=== PATIENT | female | born 1950 | race Caucasian/White ===

== ENCOUNTER → 2019-09-14 11:55 | Outpatient (BNVA) | payer BC, OTHER, MEDICARE, SELFPAY | PROVIDERS: Family Provider Registered Nurse; PCP Registered Nurse; Visit Provider Nurse Practitioner Family | DX: I10 Essential (primary) hypertension (principal); E78.2 Mixed hyperlipidemia | CPT/HCPCS: 80053; 80061 ==

== ENCOUNTER 2019-09-18 11:55 | Emergency (ER) | payer BC, OTHER, MEDICARE, SELFPAY ==
[2019-09-18 12:03] VITALS: BP 158/119; PULSE 62; RESP 16; TEMP 37.1; O2SAT 97; BMI 38.2
[2019-09-18 12:17] VITALS: BP 135/67; PULSE 60; RESP 18; O2SAT 97
--- NOTE | 2019-09-18 12:17 | ECG_ITS ---
Measurements Intervals [place] Rate: 60 P: 45 SD: 159 QRS: 51 QRSD: 74 T: 35 QT: 407 QTc: 410 SINUS RHYTHM WITH OCCASIONAL SUPRAVENTRICULAR PREMATURE COMPLEXES No previous ECG available for comparison Electronically Signed On 09-18-2019 19:37:59 CDT by Yaneth John M.D. [id number]
--- NOTE | 2019-09-18 12:17 | XR_ITS ---
WS: [id number] XR chest 1V portable [id number] REASON FOR EXAM: cp FINDINGS: Arteriosclerotic changes in the arch of the aorta is seen. Irregularity along the right sup erior mediastinal interface with the heart is noted. This is probably the azygos lobe. Arteriosclerotic changes but no enlargement of the heart. The peripheral lungs are otherwise clear no pneumonia, pleural effusion, or mass effect. XR/XR chest 1V portable [id number] IMPRESSION: Along the upper one third of the heart border mediastinum there is an irregular nodular density follow-up evaluation with repeat chest in 6 weeks recommended Arteriosclerotic changes.
--- NOTE | 2019-09-18 12:18 | ED_ITS ---
HPI - Chest Pain General: Chief Complaint: Chest Pain Stated Complaint: chest tightness Time Seen by Provider: 09/18/19 12:04 History of Present Illness: HPI narrative: Patient had an episode of substernal chest pain and pressure that started approximately 45 minutes ago and has since resolved. Patient has been seen by her PCP and also by another ER over the past few days. She is very concerned about her elevated blood pressure. She reports she's been taking her blood pressure hourly. MD complaint: chest heaviness Pertinent past history: coronary artery disease Onset (ago): minute(s) Timing of current episode: constant and now resolved Prior episodes: No Onset: during rest Pain location: substernal Pain radiation: neck Severity: moderate Quality: tightness and heaviness Relieving factors: nothing Exacerbating factors: stress Context: new medications Associated symptoms: Reports dyspnea and nausea Treatment prior to arrival: none Review of Systems General: Reports: 10 or more systems reviewed and unremarkable except in HPI and below Resp: Reports: dyspnea GI: Reports: nausea PFSH ED PFSH: Medical History Hyperlipemia Hypertension Family History Other Cancer Heart problem Social History Smoking and tobacco status: never smoked Physical Exam Const: COMMON NORMALS: patient oriented x3 HENMT: COMMON NORMALS: normocephalic and atraumatic HEAD & SCALP: normocephalic and atraumatic Neck/C-Spine: COMMON NORMALS: full ROM, no meningeal signs and no JVD Resp: COMMON NORMALS: normal respiratory effort, No retractions, No use of accessory muscles, clear to auscultation bilaterally and percussion normal AUSCULTATION: clear to auscultation bilaterally PERCUSSION: percussion normal Cardio: COMMON NORMALS: no JVD, regular rate and regular rhythm RATE: regular rate RHYTHM: regular rhythm GI: COMMON NORMALS: Normal to inspection, nondistended, normoactive bowel sounds present, Soft to palpation, non-tender and no masses PALPATION: Yes Soft to palpation Extremity: COMMON NORMALS: normal to inspection, full ROM, no joint enlargement, no clubbing, cyanosis or edema and no calf tenderness Neuro: COMMON NORMALS: patient oriented x3, CN's II-XII intact bilaterally, moves all extremities and no focal motor deficits MENINGEAL SIGNS: Yes no meningeal signs Skin: COMMON NORMALS: no rashes or lesions noted, turgor normal, no jaundice, no petechiae and no mottling GENERAL SKIN EXAM: no rashes or lesions noted and turgor normal Course Vital Signs: Vital signs: Vital Signs Temperature 98.7 F 09/18/19 12:03 Pulse Rate 60 09/18/19 12:17 Respiratory Rate 18 09/18/19 12:17 Blood Pressure 135/67 09/18/19 12:17 Pulse Oximetry 97 09/18/19 12:17 MDM - Chest Pain Lab Data: Labs: Lab Results 09/18/19 09/18/19 09/18/19 Range/Units 12:40 12:40 12:40 WBC 7.7 (4.0-10.0) 10^3/ uL RBC 4.51 (4.1-5.3) 10^6/u L Hgb 13.7 (11.5-15.3) g/dL Hct 43.8 (37.0-47.0) % MCV 97.1 (81-99) fL MCH 30.4 (28.0-34.0) pg MCHC 31.3 (30.0-36.0) g/dL RDW 12.8 (12.1-15.1) % Plt Count 291 (130-400) 10^3/c mm MPV 11.7 H (7.4-10.4) fL Neut % (Auto) 69.7 % Lymph % (Auto) 21.8 % [place] % (Auto) 6.5 % Eos % (Auto) 1.2 % Baso % (Auto) 0.5 % Neut # (Auto) 5.4 (1.8-7.7) 10^3/u L Lymph # (Auto) 1.7 (0.8-4.8) 10^3/u L [place] # (Auto) 0.5 (0.2-0.9) 10^3/u L Eos # (Auto) 0.1 (0.0-0.8) 10^3/u L Baso # (Auto) 0.0 (0.0-0.1) 10^3/u L Nucleated RBC % (a uto) 0 % Nucleated RBCs # 0.0 /100WBC Sodium 139 (136-145) mmol/L Potassium 4.4 (3.5-5.1) mmol/L Chloride 103 (98-107) mmol/L Carbon Dioxide 22 (22-29) mmol/L Anion Gap 18.4 (5-19) BUN 21 (8-23) mg/dL Creatinine 1.0 H (0.5-0.9) mg/dL GFR Calculation 55.1 L (90-130) mL/min Glucose 136 H (65-115) mg/dL Calculated Osmolal ity 287 (285-295) mOsm/k g Calcium 10.2 (8.5-10.5) mg/dL Total Bilirubin 0.3 (0.15-1.2) mg/dL AST 37 H (0-32) U/L ALT 56 H (0-33) U/L Alkaline Phosphata se 107 H (35-105) IU/L Troponin T Baselin e 9 (0-10) ng/mL Troponin T 120 Min jcarlos (0-10) ng/mL Delta Troponin T (0-10) ABS# NT-Pro-B Natriuret Pep 240 H (0-125) pg/mL Total Protein 7.6 (6.6-8.7) g/dL Albumin 4.4 (3.5-5.2) g/dL Globulin 3.2 (1.3-4.6) g/dL 09/18/19 Range/Units 14:40 WBC (4.0-10.0) 10^3/ uL RBC (4.1-5.3) 10^6/u L Hgb (11.5-15.3) g/dL Hct (37.0-47.0) % MCV (81-99) fL MCH (28.0-34.0) pg MCHC (30.0-36.0) g/dL RDW (12.1-15.1) % Plt Count (130-400) 10^3/c mm MPV (7.4-10.4) fL Neut % (Auto) % Lymph % (Auto) % [place] % (Auto) % Eos % (Auto) % Baso % (Auto) % Neut # (Auto) (1.8-7.7) 10^3/u L Lymph # (Auto) (0.8-4.8) 10^3/u L [place] # (Auto) (0.2-0.9) 10^3/u L Eos # (Auto) (0.0-0.8) 10^3/u L Baso # (Auto) (0.0-0.1) 10^3/u L Nucleated RBC % (a uto) % Nucleated RBCs # /100WBC Sodium (136-145) mmol/L Potassium (3.5-5.1) mmol/L Chloride (98-107) mmol/L Carbon Dioxide (22-29) mmol/L Anion Gap (5-19) BUN (8-23) mg/dL Creatinine (0.5-0.9) mg/dL GFR Calculation (90-130) mL/min Glucose (65-115) mg/dL Calculated Osmolal ity (285-295) mOsm/k g Calcium (8.5-10.5) mg/dL Total Bilirubin (0.15-1.2) mg/dL AST (0-32) U/L ALT (0-33) U/L Alkaline Phosphata se (35-105) IU/L Troponin T Baselin e (0-10) ng/mL Troponin T 120 Min jcarlos 8.70 (0-10) ng/mL Delta Troponin T -0.30 L (0-10) ABS# NT-Pro-B Natriuret Pep (0-125) pg/mL Total Protein (6.6-8.7) g/dL Albumin (3.5-5.2) g/dL Globulin (1.3-4.6) g/dL Discharge Plan Discharge Patient Disposition: Home, Self-Care Clinical Impression: Chest pain Qualifiers: Chest pain type: unspecified Qualified Code(s): R07.9 - Chest pain, unspecified Condition: Stable Prescriptions: No Action lovastatin 40 mg tablet 40 mg PO QDAY Qty: 90 RF: 0 losartan 100 mg tablet 100 mg PO DAILY RF: 0 lisinopril 20 mg tablet 20 mg PO DAILY Qty: 30 RF: 0 Discharge Orders: Discharge Order (Routine); Ordered 09/18/19 Ordered By: Renny Anglin Referrals: Toan,Laurica, [employer] [Primary Care Provider] - Coding Level of Care Code ED Production Line for Chg Fwd Exam Comprehensive
[2019-09-18 12:49] LABS: Basophils % 0.5 %; Eosinophils # 0.1 10^3/uL (0.0-0.8); Eosinophils % 1.2 %; Hematocrit 43.8 % (37.0-47.0); Hemoglobin 13.7 g/dL (11.5-15.3); Lymphocytes # 1.7 10^3/uL (0.8-4.8); Lymphocytes % 21.8 %; Mean Corpuscular HGB Conc 31.3 g/dL (30.0-36.0); Mean Corpuscular Hemoglobin 30.4 pg (28.0-34.0); Mean Corpuscular Volume 97.1 fL (81-99); Mean Platelet Volume 11.7 fL (7.4-10.4); Monocytes # 0.5 10^3/uL (0.2-0.9); Monocytes % 6.5 %; Neutrophils # 5.4 10^3/uL (1.8-7.7); Neutrophils % 69.7 %; Nucleated Red Blood Cells % 0 %; Platelet Count 291 10^3/cmm (130-400); Red Blood Count 4.51 10^6/uL (4.1-5.3); Red Cell Distribution Width 12.8 % (12.1-15.1); White Blood Count 7.7 10^3/uL (4.0-10.0)
[2019-09-18 13:14] LABS: Albumin Level 4.4 g/dL (3.5-5.2); Alkaline Phosphatase 107 IU/L (35-105); Anion Gap 18.4 (5-19); Aspartate Amino Transferase 37 U/L (0-32); Blood Urea Nitrogen 21 mg/dL (8-23); Calcium 10.2 mg/dL (8.5-10.5); Carbon Dioxide 22 mmol/L (22-29); Chloride 103 mmol/L (98-107); Globulin 3.2 g/dL (1.3-4.6); Glomerular Filtration Rate 55.1 mL/min (90-130); Glucose 136 mg/dL (65-115); NT Pro B Type Natriuretic Pept 240 pg/mL (0-125); Osmolality Calculated 287 mOsm/kg (285-295); Potassium 4.4 mmol/L (3.5-5.1); Sodium 139 mmol/L (136-145); Total Bilirubin 0.3 mg/dL (0.15-1.2); Total Protein 7.6 g/dL (6.6-8.7)
[2019-09-18 13:25] LABS: Alanine Aminotransferase 56 U/L (0-33)
[2019-09-18 13:49] LABS: Troponin(5th) Baseline 9 ng/mL (0-10)
--- NOTE | 2019-09-18 14:17 | ECG_ITS ---
Measurements Intervals [place] Rate: 55 P: 39 WI: 169 QRS: 44 QRSD: 77 T: 29 QT: 434 QTc: 418 SINUS BRADYCARDIA WITH OCCASIONAL SUPRAVENTRICULAR PREMATURE COMPLEXES No previous ECG available for comparison Electronically Signed On 09-18-2019 19:41:56 CDT by Yaneth John M.D. [id number]
[2019-09-18] MEDS: acetaminophen 500 mg Tablet 1000 MG PO (15:17)
[2019-09-18 16:52] VITALS: BP 175/93; PULSE 88; RESP 20; O2SAT 98
== END 2019-09-18 16:54 | disposition home or self-care (01) ==
PROVIDERS: Emergency Provider Family Medicine; PCP Registered Nurse
DX: R07.9 Chest pain, unspecified (principal); I10 Essential (primary) hypertension; E78.5 Hyperlipidemia, unspecified
CPT/HCPCS: 12345; 36415; 71045; 80053; 83880; 84484; 85025; 93005; 99282; 99284

== ENCOUNTER 2019-11-01 13:29 | Outpatient (CLI) | payer MEDICARE, OTHER, SELFPAY ==
--- NOTE | 2019-11-01 13:30 | USCV_ITS ---
Gregoria Godfrey Age: 68 Gender: F : 1950 Exam Date: 11/01/2019 13:44 Ordering Phys: Yaneth John MD ([email or web address]) Technologist: Svetlana Miller Exam Location: [facility] [place] Indication: SOB BP: 130 / 82 HR: 69 Rhythm: Sinus Technical Quality: Suboptimal MEASUREMENTS (Male / Female) Normal Values 2D ECHO LV Diastolic Diameter PLAX 2.9 cm 4.2 - 5.9 / 3.9 - 5.3 cm LV Systolic Diameter PLAX 1.6 cm LV Chamber Size 3.8 cm IVS Diastolic Thickness 1.4 cm 0.6 - 1.0 / 0.6 - 0.9 cm IVS Systolic Thickness 1.5 cm LVPW Diastolic Thickness 1.1 cm 0.6 - 1.0 / 0.6 - 0.9 cm LVPW Systolic Thickness 1.3 cm RV Chamber Size 2.7 cm LVOT Diameter 1.7 cm LV Ejection Fraction 2D Teich 78.8 % LV Ejection Fraction MOD 2C 52.0 % LV Ejection Fraction 2C AL 60.2 % LA Diameter 3.6 cm LA Width 3.0 cm LA Height 4.4 cm RA Width 2.7 cm RA Height 4.1 cm Aorta at Sinotubular Diameter 2.4 cm M-MODE LV Diastolic Diameter MM 3.7 cm 4.2 - 5.9 / 3.9 - 5.3 cm LV Systolic Diameter MM 2.0 cm LV Ejection Fraction MM Teich 78.8 % IVS Diastolic Thickness MM 1.4 cm 0.6 - 1.0 / 0.6 - 0.9 cm IVS Systolic Thickness MM 1.9 cm LVPW Diastolic Thickness MM 1.2 cm 0.6 - 1.0 / 0.6 - 0.9 cm LVPW Systolic Thickness MM 1.4 cm RV Diastolic Diameter MM 2.4 cm Aortic Annulus Diameter 3.1 cm LA Ao Ratio MM 1.2 MV E Point Septal Separation 0.6 cm DOPPLER AV Peak Velocity 262.0 cm/s LVOT Peak Velocity 120.0 cm/s AV Area Cont Eq vti 1.0 cm squared AV Area Cont Eq pk 1.1 cm squared MV Area PHT 2.6 cm squared Mitral E to A Ratio 0.8 MV E' Velocity 5.0 cm/s Mitral E to MV E' Ratio 13.6 Mitral E to LV E' Lateral Ratio 16.5 Mitral E to LV E' Septal Ratio 11.7 TV Peak E Velocity 65.0 cm/s Right Atrial Pressure 3.0 mmHg PV Peak Velocity 91.0 cm/s RV Acceleration Time 0.1 s RV Ejection Time 0.3 s RV AcT/ET 0.4 FINDINGS Left Ventricle Normal left ventricular cavity size. Normal left ventricular systolic function. No regional wall motion abnormalities.left ventricular ejection fraction is estimated at 60 %. Grade I/IV diastolic dysfunction (abnormal relaxation filling pattern), normal to mildly elevated filling pressures. Right Ventricle The right ventricle is normal in size and function. RVSP could not be calculated due to incomplete tricuspid regurgitation velocity profile. Right Atrium The right atrium is normal in size. Left Atrium The left atrium is normal in size. Mitral Valve Severely thickened mitral valve. Severe mitral annular calcification. No mitral valve stenosis. No mitral valve regurgitation. Aortic Valve Moderate aortic valve calcification. Mild aortic valve stenosis, mean gradient 16.5 mmHg, AMINA 1.1cm squared. Mild aortic valve regurgitation. Velocity across the aortic valve is 2.6 m/s Tricuspid Valve Mild tricuspid valve regurgitation. Pulmonic Valve Structurally normal pulmonic valve without significant stenosis. There is no pulmonic regurgitation. Pericardium Normal pericardium without effusion. Aorta Normal ascending aorta dimension. CONCLUSIONS 1-Normal left ventricular cavity size. Normal left ventricular systolic function. No regional wall motion abnormalities.left ventricular ejection fraction is estimated at 60 %. Grade I/IV diastolic dysfunction (abnormal relaxation filling pattern), normal to mildly elevated filling pressures. 2-The right ventricle is normal in size and function. RVSP could not be calculated due to incomplete tricuspid regurgitation velocity profile. 3-Severely thickened mitral valve. Severe mitral annular calcification. No mitral valve stenosis. No mitral valve regurgitation. 4-Moderate aortic valve calcification. Mild aortic valve stenosis, mean gradient 16.5 mmHg, AMINA 1.1cm squared. Mild aortic valve regurgitation. Velocity across the aortic valve is 2.6 m/s. 5-Mild tricuspid valve regurgitation. 6-There is no pericardial effusion. 7-Right atrial pressure is around 5 mm of mercury. 8-There are no prior echocardiogram studies to compare. Yaneth John MD (Electronically Signed) Final Date: 03 November 2019 21:34 S
== END 2019-11-01 13:30 | disposition home or self-care (01) ==
LOC: US 13:30
PROVIDERS: PCP Nurse Practitioner Family; Visit Provider Internal Medicine Cardiovascular Disease
DX: R06.02 Shortness of breath (principal); I08.3 Combined rheumatic disorders of mitral, aortic and tricuspid valves
CPT/HCPCS: 93306

== ENCOUNTER → 2020-07-30 10:00 | Outpatient (BNVA) | payer MEDICARE, OTHER, SELFPAY | PROVIDERS: PCP Nurse Practitioner Family; Visit Provider Registered Nurse | DX: E78.2 Mixed hyperlipidemia (principal); I10 Essential (primary) hypertension; E78.5 Hyperlipidemia, unspecified; Z12.31 Encounter for screening mammogram for malignant neoplasm of breast | CPT/HCPCS: 80053; 80061; 85025 ==

== ENCOUNTER 2020-09-12 11:31 | Outpatient (CLI) | payer MEDICARE, OTHER, SELFPAY ==
--- NOTE | 2020-09-12 12:00 | MM_ITS ---
WS: [id number] SCREENING DIGITAL MAMMOGRAM WITH CAD HISTORY: Z12.31 - Encounter for screening mammogram for malignant neoplasm of breast COMPARISON: 12/30/2017 and 11/09/2016 Bilateral CC and MLO views submitted. Computer aided detection analyzed. Breast composition: There are scattered areas of fibroglandular density. No suspicious masses, microc alcifications or architectural distortion. Benign calcifications and asymmetries are stable. MM/[place] [id number] IMPRESSION: BI-RADS: 2-Benign FOLLOW UP: 1 Year Follow-up
== END 2020-09-12 11:32 | disposition home or self-care (01) ==
LOC: RADSHAW 11:37
PROVIDERS: PCP Nurse Practitioner Family; Visit Provider Registered Nurse
DX: Z12.31 Encounter for screening mammogram for malignant neoplasm of breast (principal)
CPT/HCPCS: 77067

== ENCOUNTER → 2021-02-09 10:35 | Outpatient (BNVA) | payer MEDICARE, OTHER, SELFPAY | PROVIDERS: PCP Nurse Practitioner Family; Visit Provider Registered Nurse | DX: I10 Essential (primary) hypertension (principal); E03.9 Hypothyroidism, unspecified; E78.5 Hyperlipidemia, unspecified | CPT/HCPCS: 80053; 80061; 84443; 85025 ==

== ENCOUNTER → 2021-02-16 09:45 | Outpatient (BNVA) | payer MEDICARE, OTHER, SELFPAY | PROVIDERS: PCP Nurse Practitioner Family; Visit Provider Registered Nurse | DX: R73.9 Hyperglycemia, unspecified (principal) | CPT/HCPCS: 83036 ==

== ENCOUNTER → 2021-11-12 09:45 | Outpatient (BNVA) | payer MEDICARE, OTHER, SELFPAY | PROVIDERS: PCP Registered Nurse; Visit Provider Registered Nurse | DX: I10 Essential (primary) hypertension (principal); E78.5 Hyperlipidemia, unspecified; Z79.899 Other long term (current) drug therapy | CPT/HCPCS: 80053; 80061; 83036; 85025 ==

== ENCOUNTER 2021-11-26 10:45 | Outpatient (CLI) | payer MEDICARE, OTHER, SELFPAY ==
--- NOTE | 2021-11-26 10:54 | XR_ITS ---
WS: [email or web address] XR thoracic spine 3V* [id number] REASON FOR EXAM: M54.6 - Pain in thoracic spine FINDINGS: Mild thoracic scoliosis convex right. No vertebral body abnormality. Mild narrowing of the intervertebral disc spaces with small anterior osteophytes in the mid and lower thoracic spine. XR/XR thoracic spine 3V* [id number] IMPRESSION: Mild scoliosis and degenerative spondylosis.
--- NOTE | 2021-11-26 10:54 | XR_ITS ---
WS: [email or web address] XR lumbar spine 2-3V* [id number] REASON FOR EXAM: M54.59 - Other low back pain FINDINGS: Relatively normal lumbar curvature. Moderate decreased bone density. Mild biconcave compression deformities L1-S1. Intervertebral disc spaces are relatively well-preserved. No significant listhesis. Degenerative changes in the facet joints L4-S1. XR/XR lumbar spine 2-3V* [id number] IMPRESSION: Mild changes of degenerative spondylosis. The age of the compression deformities is unknown. The deformities at L4 and L5 appear chronic. The compression deformities L1-L3 uncertain.
== END 2021-11-26 10:46 | disposition home or self-care (01) ==
LOC: RAD 10:47
PROVIDERS: PCP Registered Nurse; Visit Provider Registered Nurse
DX: M54.59 Other low back pain (principal); M41.84 Other forms of scoliosis, thoracic region; M47.814 Spondylosis without myelopathy or radiculopathy, thoracic region
CPT/HCPCS: 72072; 72100

== ENCOUNTER → 2022-06-01 09:52 | Outpatient (BNVA) | payer MEDICARE, OTHER, SELFPAY | PROVIDERS: PCP Registered Nurse; Visit Provider Anesthesiology Pain Medicine | DX: M54.16 Radiculopathy, lumbar region (principal); M79.604 Pain in right leg; M79.605 Pain in left leg | CPT/HCPCS: 99204 ==

== ENCOUNTER → 2022-06-08 15:23 | Outpatient (BNVA) | payer MEDICARE, SELFPAY | PROVIDERS: PCP Registered Nurse; Visit Provider Registered Nurse | DX: J32.9 Chronic sinusitis, unspecified (principal) | CPT/HCPCS: 87400; 87426 ==

== ENCOUNTER → 2022-06-17 10:23 | Outpatient (BNVA) | payer MEDICARE, SELFPAY | PROVIDERS: PCP Registered Nurse; Visit Provider Registered Nurse | DX: I10 Essential (primary) hypertension (principal); E78.5 Hyperlipidemia, unspecified; E55.9 Vitamin D deficiency, unspecified; R73.9 Hyperglycemia, unspecified; M81.0 Age-related osteoporosis without current pathological fracture; Z00.00 Encounter for general adult medical examination without abnormal findings; Z12.11 Encounter for screening for malignant neoplasm of colon; Z12.31 Encounter for screening mammogram for malignant neoplasm of breast; Z71.85 Encounter for immunization safety counseling | CPT/HCPCS: 80053; 80061; 82306; 83036; 85025 ==

== ENCOUNTER 2022-06-24 12:24 | Outpatient (CLI) | payer MEDICARE, SELFPAY ==
--- NOTE | 2022-06-24 13:02 | MM_ITS ---
WS: [id number] Bilateral screening 3D tomosynthesis digital mammogram, 06/24/2022 Clinical Data: Z12.31 - Encounter for screening mammogram for malignant ... Comparison: 09/12/2020, 12/30/2017, 11/09/2016. Findings: The breast parenchymal pattern shows fibroglandular tissue. No spiculated masses or clustered calcifi cations are seen. There are no secondary signs of carcinoma. MM/[place] [id number] Impression: 1. Negative bilateral mammogram unchanged. 2. Recommend annual screening mammograms. BIRADS: 1-Negative FOLLOW UP: 1 Year Follow-up The CAD schedule checker was used.
--- NOTE | 2022-06-24 14:00 | XR_ITS ---
WS: [id number] DEXA (DUAL ENERGY X-RAY ABSORPTIOMETRY) Bone mineral density was performed using a [email or web address] machine. HISTORY: M81.0 - Age-related osteoporosis without current pathological fracture COMPARISON: None available. Lumbar spine BMD (L1-L4): 1.212 g/cm2 T score: 0.3 Z score: 1.0 Total hip BMD: Left: 0.938 g/cm2. T score: -0.6 Z score: 0.3 Right: 0.930 g/cm2. T score: -0.6 Z score: 0.2 10 year probability of a major osteoporotic fracture is 9.8%. XR/XR DEXA axial skeleton* [id number] IMPRESSION: NORMAL BONE MINERAL DENSITY based upon the WHO classification for females.
== END 2022-06-24 12:25 | disposition home or self-care (01) ==
LOC: RAD 12:27
PROVIDERS: PCP Registered Nurse; Visit Provider Registered Nurse
DX: Z12.31 Encounter for screening mammogram for malignant neoplasm of breast (principal); M81.0 Age-related osteoporosis without current pathological fracture
CPT/HCPCS: 77063; 77067; 77080

== ENCOUNTER 2022-06-30 13:56 | Outpatient (CLI) | payer MEDICARE, SELFPAY ==
--- NOTE | 2022-06-30 14:30 | MR_ITS ---
WS: [email or web address] MRI LUMBAR SPINE NONCONTRAST TECHNIQUE: Sagittal T1, T2 and STIR imaging. Axial T1 and T2 imaging. CLINICAL INFORMATION: M54.16 - Radiculopathy, lumbar region COMPARISON: None. FINDINGS: Mild lumbar curve. No acute compression. No high-grade central canal narrowing. Incidental intraosseo us hemangiomas at T11, L3, and L4. No acute compression fractures. L1-L2: Mild annular bulging. Mild facet arthropathy. Spinal canal and foramen are patent. L2-L3: Mild annular bulging. Slight effacement of ventral thecal sac. Slight narrowing of the RIGHT s ubarticular recess. Mild facet arthropathy. Spinal canal and foramen are patent. L3-L4: Mild annular bulging with slight narrowing of the subarticular recess bilaterally. Mild facet arthropathy. Foramen are patent. L4-L5: Mild annular bulging. LEFT foraminal protrusion with mild LEFT foraminal narrowing. RIGHT fora men is patent. Moderate facet arthropathy. L5-S1: Mild annular bulging. RIGHT foraminal protrusion slightly contacts the exiting RIGHT L5 nerve root laterally. Correlation for RIGHT L5 nerve root symptoms. LEFT foramen is patent. Mild facet arth ropathy. Visualized pelvic bony structures: Normal. Paravertebral soft tissues: Normal. MR/MR lumbar spine wo con* [id number] IMPRESSION: 1. Mild lumbar curve. No acute compression. No high-grade central canal stenos is. 2. Annular bulging L2-L3 with slight impingement on the RIGHT subarticular rec ess and traversing RIGHT L3 nerve root. 3. Tiny LEFT foraminal protrusion L4-L5 slightly encroaches on the exiting LEF T L4 nerve root. 4. RIGHT eccentric disc bulge L5-S1 contacts the exiting RIGHT L5 nerve root. Recommend correlation RIGHT L5 nerve root symptoms. 5. Mild facet arthropathy L3-L4 and L4-L5.
== END 2022-06-30 13:57 | disposition home or self-care (01) ==
PROVIDERS: PCP Registered Nurse; Visit Provider Anesthesiology Pain Medicine
DX: M54.16 Radiculopathy, lumbar region (principal); M51.36 Other intervertebral disc degeneration, lumbar region; M47.816 Spondylosis without myelopathy or radiculopathy, lumbar region
CPT/HCPCS: 72148

== ENCOUNTER → 2022-07-19 08:36 | Outpatient (BNVA) | payer MEDICARE, SELFPAY | PROVIDERS: PCP Registered Nurse; Visit Provider Anesthesiology Pain Medicine | DX: M54.50 Low back pain, unspecified (principal) | CPT/HCPCS: 99214 ==

== ENCOUNTER → 2022-08-02 12:22 | Outpatient (BNVA) | payer MEDICARE, SELFPAY | PROVIDERS: PCP Registered Nurse; Visit Provider Anesthesiology Pain Medicine | DX: M47.816 Spondylosis without myelopathy or radiculopathy, lumbar region (principal) | CPT/HCPCS: 64493; 64494; 64495; J3490 ==

== ENCOUNTER → 2022-08-10 07:46 | Outpatient (BNVA) | payer MEDICARE, SELFPAY | PROVIDERS: PCP Registered Nurse; Visit Provider Surgery | DX: Z12.11 Encounter for screening for malignant neoplasm of colon (principal) | CPT/HCPCS: 99024; 99203 ==

== ENCOUNTER → 2022-08-16 13:21 | Outpatient (BNVA) | payer MEDICARE, SELFPAY | PROVIDERS: PCP Registered Nurse; Visit Provider Anesthesiology Pain Medicine | DX: M47.816 Spondylosis without myelopathy or radiculopathy, lumbar region (principal) | CPT/HCPCS: 64493; 64494; 64495 ==

== ENCOUNTER → 2022-09-06 09:25 | Outpatient (BNVA) | payer MEDICARE, SELFPAY | PROVIDERS: PCP Registered Nurse; Visit Provider Anesthesiology Pain Medicine | DX: M47.816 Spondylosis without myelopathy or radiculopathy, lumbar region (principal) | CPT/HCPCS: 99214 ==

== ENCOUNTER 2022-09-15 05:46 | Day surgery (SDC) | payer MEDICARE, SELFPAY ==
[2022-09-10 12:11] VITALS: BMI 37.5
[2022-09-15 06:06] VITALS: BP 165/94; PULSE 87; RESP 18; TEMP 36.3; O2SAT 96
[2022-09-15] MEDS: sodium chloride 0.9% 1,000 ML 30 ML IV (06:18)
--- NOTE | 2022-09-15 06:36 | ANES.PREANE2 ---
Pre-Anesthetic Assessment Height/Weight: Height 1.57 m Weight 92.986 kg Temp Pulse Resp BP Pulse Ox O2 Del Method 97.4 F L 87 18 165/94 96 Room Air 09/15/22 06:06 09/15/22 06:06 09/15/22 06:06 09/15/22 06:06 09/15/22 06:06 09/15/22 06:06 Preop Diagnosis: Screening Operation Date: 09/15/22 07:30 Proposed Procedures p [id number] Colonoscopy Z12.11(Not Applicable) - Torito Muniz DO Familial anesthetic complications: `None Was Beta Funmi taken within 24 hours: N/A Was Clonidine taken within 24 hours: N/A Last intake: Intake Last Liquid Date 09/14/22 Last Liquid Time 22:30 Last Solid Date 09/13/22 Last Solid Time 20:00 Social No alcohol and No tobacco Exam alert, oriented x 3, clear to auscultation bilaterally and regular rate & rhythm Airway Submandibular: within normal limits Cervical ROM: Other (Decreased ROM) Mallampati: Class III Dentition: full History/ROS No significant history except as noted and No significant complaints Pulmonary Exertional Dyspnea and Sleep Apnea CV/HEM Hypertension and Murmur None reported Hepatic None reported GI Gastroesophageal Reflux Disease (None this am) Metabolic Diabetes Mellitus (Pre-diabetic), Hyperlipidemia and Morbid Obesity Musc/skel Lower Back Pain, Osteoarthritis/DJD and Weakness Neuropsych Neuropathy Anesthetic Plan ASA status: 3 Anesthesia: Anesthesia Evaluation, General and MAC Risk of > 500 ml blood loss (7ml/kg in children): No Medications/Allergies Home Medications Medication Instructions Recorded Confirmed Last Taken Type amlodipine 5 mg tablet 5 mg PO BID 90 days #180 tabs 11/23/21 09/15/22 09/15/22 Rx atorvastatin 40 mg tablet 40 mg PO DAILY 09/10/22 09/15/22 09/14/22 History losartan 100 mg tablet 100 mg PO DAILY 09/10/22 09/15/22 09/14/22 History Allergies Allergy/AdvReac Type Severity Reaction Status Date / Time No Known Allergies Allergy Verified 09/10/22 12:07 Current Medications Generic Name Dose Route Start Last Admin Trade Name Freq PRN Reason Stop Dose Admin Sodium Chloride 1,000 mls @ 30 mls/hr 09/15/22 06:00 09/15/22 06:18 Sodium Chloride 0.9% IV 09/16/22 05:59 30 mls/hr .Q24H ОЛЬГА Administration PFSH Anesthesia Medical History Chest pressure Heart murmur, systolic Hyperlipemia Hypertension Palpitation Surgical History Hx of colonoscopy 20 yrs ago Hx of hysterectomy Family History Other Cancer Heart problem Social History Smoking and tobacco status: former smoker Alcohol intake: never Substance/Drug Use: never Adopted: No Caregiver/support person: No Do you think of yourself as: Straight/Heterosexual Current gender identity: Female Data Anesthesia Cardiac Studies: Echocardiogram Ultrasound 11/01/19
--- NOTE | 2022-09-15 07:20 | PM.HP ---
Providers/Chief Complaint Primary Care Provider: KISHAN Franks Chief Complaint: 45512; Z12.11 History of Present Illness Gregoria Godfrey is a 71 year old female here for a screening colonoscopy Medications/Allergies Home Medications Medication Instructions Recorded Confirmed Last Taken Type amlodipine 5 mg tablet 5 mg PO BID 90 days #180 tabs 11/23/21 09/15/22 09/15/22 Rx atorvastatin 40 mg tablet 40 mg PO DAILY 09/10/22 09/15/22 09/14/22 History losartan 100 mg tablet 100 mg PO DAILY 09/10/22 09/15/22 09/14/22 History Allergies Allergy/AdvReac Type Severity Reaction Status Date / Time No Known Allergies Allergy Verified 09/10/22 12:07 PFSH Acute PFSH: Medical History Chest pressure Heart murmur, systolic Hyperlipemia Hypertension Palpitation Surgical History Hx of colonoscopy 20 yrs ago Hx of hysterectomy Family History Other Cancer Heart problem Social History Smoking and tobacco status: former smoker Alcohol intake: never Substance/Drug Use: never Adopted: No Caregiver/support person: No Do you think of yourself as: Straight/Heterosexual Current gender identity: Female Vitals/I&O/Wt Last Vital Signs Temp 97.4 F L 09/15/22 06:06 Pulse 87 09/15/22 06:06 Resp 18 09/15/22 06:06 BP 165/94 09/15/22 06:06 Pulse Ox 96 09/15/22 06:06 O2 Del Method Room Air 09/15/22 06:06 A&P Assessment and plan (1) Colon cancer screening: Plan Screening colonoscopy Attestations Medical Necessity Statement*: Home Coding Level of Care Code Acute Code for Chg Fwd Diagnoses Colon cancer screening Z12.11
[2022-09-15 07:43] VITALS: BP 173/100; PULSE 75; RESP 19; TEMP 36.1; O2SAT 96
[2022-09-15 07:53] VITALS: BP 172/85; PULSE 70; RESP 18; O2SAT 93
[2022-09-15 08:03] VITALS: BP 145/114; PULSE 71; RESP 16; O2SAT 96
[2022-09-15 08:11] VITALS: BP 145/79; PULSE 71; RESP 16; O2SAT 97
--- NOTE | 2022-09-15 12:44 | ANE.PACU2 ---
Inpatient post-anesthesia follow up: Airway intact: Yes Vital signs: Temperature 97 F Pulse Rate 71 Respiratory Rate 16 Blood Pressure 145/79 Pulse Oximetry 97 Oxygen Delivery Me thod Room Air Oxygen Flow Rate Fraction of Inspir ed Oxygen Hydration adequate: Yes Nausea and vomiting: No Pain level: 1 Mental status: Baseline
== END 2022-09-15 08:30 | disposition home or self-care (01) ==
PROVIDERS: PCP Registered Nurse; Visit Provider Surgery
PROC: 0DJD8ZZ Inspection of Lower Intestinal Tract, Via Natural or Artificial Opening Endoscopic (ICD-10-PCS; CPT 45378; principal; 2022-09-15 07:30)
DX: Z12.11 Encounter for screening for malignant neoplasm of colon (principal); K63.5 Polyp of colon; I10 Essential (primary) hypertension; G47.30 Sleep apnea, unspecified; K21.9 Gastro-esophageal reflux disease without esophagitis; E78.5 Hyperlipidemia, unspecified; E66.01 Morbid (severe) obesity due to excess calories; Z68.37 Body mass index [BMI] 37.0-37.9, adult; R01.1 Cardiac murmur, unspecified; Z87.891 Personal history of nicotine dependence; K57.30 Diverticulosis of large intestine without perforation or abscess without bleeding
CPT/HCPCS: 45385; 88305; J2704; J7030

== ENCOUNTER → 2022-09-20 12:27 | Outpatient (BNVA) | payer MEDICARE, SELFPAY | PROVIDERS: PCP Registered Nurse; Visit Provider Anesthesiology Pain Medicine | DX: M47.816 Spondylosis without myelopathy or radiculopathy, lumbar region (principal) | CPT/HCPCS: 64493; 64494; 64495; J3490 ==

== ENCOUNTER → 2022-10-04 09:37 | Outpatient (BNVA) | payer MEDICARE, SELFPAY | PROVIDERS: PCP Registered Nurse; Visit Provider Anesthesiology Pain Medicine | DX: M54.50 Low back pain, unspecified (principal); M79.604 Pain in right leg; M79.605 Pain in left leg | CPT/HCPCS: 99213 ==

== ENCOUNTER → 2022-10-06 17:16 | Outpatient (BNVA) | payer MEDICARE, SELFPAY | PROVIDERS: PCP Registered Nurse; Visit Provider Surgery | DX: Z09 Encounter for follow-up examination after completed treatment for conditions other than malignant neoplasm (principal) | CPT/HCPCS: 99024; 99212 ==

== ENCOUNTER → 2023-06-21 10:28 | Outpatient (BNVA) | payer MEDICARE, SELFPAY | PROVIDERS: PCP Registered Nurse; Visit Provider Registered Nurse | DX: I10 Essential (primary) hypertension (principal) | CPT/HCPCS: 80053; 80061; 85025 ==

== ENCOUNTER 2023-07-21 14:03 | Outpatient (CLI) | payer MEDICARE, OTHER, SELFPAY ==
--- NOTE | 2023-07-21 14:07 | MM_ITS ---
WS: [id number] BILATERAL SCREENING DIGITAL TOMOSYNTHESIS MAMMOGRAM WITH CAD HISTORY: SCREENING COMPARISON: 06/24/2022, 09/12/2020 and 12/30/2017 Bilateral CC and MLO views with tomosynthesis and synthetic mammography submitted. Computer aided det ection analyzed. Breast composition: There are scattered areas of fibroglandular density. No suspicious masses, microc alcifications or architectural distortion. Stable lobulated 8 mm mass in the medial inferior LEFT bharath ast. This may be a small lymph node. No increase in size. IMPRESSION: MM/[place] [id number] BI-RADS: 2-Benign FOLLOW UP: 1 Year Follow-up
== END 2023-07-21 14:04 | disposition home or self-care (01) ==
LOC: RAD 14:04
PROVIDERS: PCP Registered Nurse; Visit Provider Registered Nurse
DX: Z12.31 Encounter for screening mammogram for malignant neoplasm of breast (principal)
CPT/HCPCS: 77063; 77067

== ENCOUNTER → 2024-06-25 11:31 | Outpatient (BNVA) | payer MEDICARE, OTHER, SELFPAY | PROVIDERS: PCP Registered Nurse; Visit Provider Registered Nurse | DX: Z13.6 Encounter for screening for cardiovascular disorders (principal); Z13.1 Encounter for screening for diabetes mellitus; E78.5 Hyperlipidemia, unspecified | CPT/HCPCS: 80053; 80061; 83036; 85025 ==

== ENCOUNTER 2024-07-25 12:47 | Outpatient (CLI) | payer MEDICARE, OTHER, SELFPAY | END 2024-07-25 12:48 | disposition home or self-care (01) | LOC: RAD 12:48 | PROVIDERS: PCP Registered Nurse; Visit Provider Registered Nurse | DX: Z12.31 Encounter for screening mammogram for malignant neoplasm of breast (principal); R92.323 Mammographic fibroglandular density, bilateral breasts; R92.1 Mammographic calcification found on diagnostic imaging of breast | CPT/HCPCS: 77063; 77067 ==

== ENCOUNTER 2024-07-27 14:43 | Outpatient (CLI) | payer MEDICARE, OTHER, SELFPAY ==
--- NOTE | 2024-07-25 12:41 | MM_ITS ---
WS: [email or web address] BILATERAL 3D TOMOSYNTHESIS DIGITAL SCREENING MAMMOGRAPHY WITH CAD CLINICAL INFORMATION: SCREENING HISTORY: Screening mammogram. No current complaints. COMPARISON: 2023 TECHNIQUE: Bilateral CC and MLO views. FINDINGS: Scattered fibroglandular densities bilaterally. No suspicious focal mass, asymmetry, calcifications, or architectural distortion. No evidence of malignancy. Punctate calcification LEFT breast. Vascular calcification. MM/MM scr BI tomosynthesis [id number] IMPRESSION: DENSITY: There are scattered areas of fibroglandular density. BI-RADS: 2 - Benign. FOLLOW UP: 1 Year Follow-up Recommend return to annual screening mammography.
--- NOTE | 2024-07-27 15:00 | USCV_ITS ---
Gregoria Godfrey Age: 73 Gender: F : 1950 Exam Date: 07/27/2024 15:13 Ordering Phys: Curly Joya UPHOLSTERY SEWER Technologist: Kishan Castillo Exam Location: [facility] – [place] Indication: cardiac murmur BP: 140 / 80 HR: 71 Rhythm: Sinus Technical Quality: Adequate MEASUREMENTS (Male / Female) Normal Values 2D ECHO LV Diastolic Diameter PLAX 4.4 cm 4.2 - 5.9 / 3.9 - 5.3 cm IVS Diastolic Thickness 1.1 cm 0.6 - 1.0 / 0.6 - 0.9 cm IVS Systolic Thickness 1.9 cm LVPW Diastolic Thickness 1.9 cm 0.6 - 1.0 / 0.6 - 0.9 cm LVPW Systolic Thickness 2.3 cm LVOT Diameter 2.0 cm LV Ejection Fraction 2D Teich 79.4 % LV Ejection Fraction MOD 4C 72.0 % LV Ejection Fraction MOD 2C 77.8 % LV Ejection Fraction 2C AL 77.8 % LA Diameter 3.4 cm RA Systolic Volume 4C AL 39.4 ml RA Systolic Volume 4C MOD 39.4 ml LA Sys Volume AL 50.5 cm cubed LA Sys Volume Index AL 23.8 cm cubed/m squared Aorta at Sinotubular Diameter 2.4 cm IVC Diameter 1.7 cm M-MODE LA Ao Ratio MM 1.8 AV Cusp Separation MM 1.0 cm DOPPLER AV Peak Velocity 408.0 cm/s LVOT Peak Velocity 105.0 cm/s AV Area Cont Eq vti 0.9 cm squared AV Area Cont Eq pk 0.8 cm squared MV Peak Velocity 147.0 cm/s MV Area PHT 3.5 cm squared Mitral E to A Ratio 0.8 TR Peak Velocity 354.0 cm/s TR Peak Gradient 50.1 mmHg TR Mean Velocity 422.0 cm/s TR Mean Gradient 73.9 mmHg TR Velocity Time Integral 119.5 cm PV Peak Velocity 118.0 cm/s RV Ejection Time 0.3 s FINDINGS Left Ventricle Mild left ventricular hypertrophy. Normal left ventricular size and systolic function, EF 78%.Grade I/IV diastolic dysfunction (abnormal relaxation filling pattern), normal to mildly elevated filling pressures. Right Ventricle The right ventricle is normal in size and function. Right Atrium The right atrium is normal in size. Left Atrium Mildly increased left atrial size. Mitral Valve Thickened mitral valve. Moderate mitral annular calcification. Aortic Valve Severe aortic valve stenosis, mean gradient 38.1 mmHg, AMINA 0.85 cm squared. Trace to mild aortic valve regurgitation. Peak gradient of 66 mmHg with a peak velocity of 4.1 m/s Tricuspid Valve Trace tricuspid valve regurgitation. Estimated pulmonary artery peak systolic pressure 53 mmHg Pulmonic Valve Mild pulmonary valve regurgitation. Pericardium Normal pericardium without effusion. Aorta Normal aortic annulus size. IVC Inferior vena cava not visualized. CONCLUSIONS Mild left ventricular hypertrophy. Normal left ventricular size and systolic function, EF 78%.Grade I/IV diastolic dysfunction (abnormal relaxation filling pattern), normal to mildly elevated filling pressures. Severe aortic valve stenosis, mean gradient 38.1 mmHg, AMINA 0.85 cm squared. Trace to mild aortic valve regurgitation. Peak gradient of 66 mmHg with a peak velocity of 4.1 m/s. Mildly increased left atrial size. Thickened mitral valve. Moderate mitral annular calcification. Trace tricuspid valve regurgitation. Estimated pulmonary artery peak systolic pressure 53 mmHg. Mild pulmonary valve regurgitation. There is no pericardial effusion. Compared to the study from 11/01/2019, there is worsening of the aortic valve stenosis Dr Derrick Curtis MD [facility] (Electronically Signed) Final Date: 27 July 2024 18:59 S
== END 2024-07-27 14:44 | disposition home or self-care (01) ==
PROVIDERS: PCP Registered Nurse; Visit Provider Registered Nurse
DX: R01.1 Cardiac murmur, unspecified (principal); I51.7 Cardiomegaly; R93.1 Abnormal findings on diagnostic imaging of heart and coronary circulation; I34.81 Nonrheumatic mitral (valve) annulus calcification; I35.0 Nonrheumatic aortic (valve) stenosis; I35.1 Nonrheumatic aortic (valve) insufficiency; I37.1 Nonrheumatic pulmonary valve insufficiency
CPT/HCPCS: 77063; 77067; 93306